=== PATIENT | female | born 1950 | race Caucasian/White ===

== ENCOUNTER → 2023-11-09 06:57 | Outpatient (REF) | payer MEDICARE, OTHER, SELFPAY ==
[2023-11-09 08:06] LABS: % Basophils 0.6 % (0-2); % Eosinophils 2.5 % (0-6); % Immature Granulocytes 0.2 % (0-0.5); % Lymphocytes 35.5 % (20.5-51.1); % Monocytes 6.8 % (1.7-9.3); % Neutrophils 54.4 % (42.2-75.2); Absolute Eosinophils 0.2 10^3/uL (0-0.7); Absolute Lymphocytes 2.3 10^3/uL (1.2-3.4); Absolute Monocytes 0.4 10^3/uL (0.1-0.6); Absolute Neutrophils 3.4 10^3/uL (1.4-6.5); Hematocrit 35.7 % (37.0-47.0); Hemoglobin 11.4 g/dL (12.0-16.0); Mean Corp Hgb Conc. 31.9 g/dL (33.0-37.0); Mean Corpuscular Hgb 31.2 pg (27.0-31.0); Mean Corpuscular Volume 97.8 fL (81.0-99.0); Mean Platelet Volume 10.5 fL (7.4-10.4); Nucleated Red Blood Cells % 0 %; Platelet Count 256 10^3/uL (130-400); Red Blood Cell Count 3.65 10^6/uL (4.20-5.40); White Blood Cell Count 6.3 10^3/uL (4.8-10.8)
[2023-11-09 08:46] LABS: ALT (SGPT) 28 U/L (0-35); AST (SGOT) 22 U/L (14-36); Albumin 4.3 g/dl (3.5-5.0); Alkaline Phosphatase 79 U/L (38-126); Blood Urea Nitrogen 20 mg/dl (7-17); Calcium 9.4 mg/dl (8.4-10.2); Carbon Dioxide 28 mmol/L (22-30); Chloride 104 mmol/L (98-107); Glucose 92 mg/dl (70-99); HDL Cholesterol 79 mg/dl; LDH 186 U/L (120-246); LDL Cholesterol, Calculated 141 mg/dl; Potassium 4.3 mmol/L (3.5-5.1); Sodium 136 mmol/L (135-145); Total Bilirubin 0.9 mg/dl (0.2-1.3); Total Cholesterol 239 mg/dl (50-199); Total Protein 6.6 g/dl (6.3-8.2); Triglyceride 98 mg/dl (10-149); Very Low Density Lipoprotein 19 mg/dl (0-30); eGFR > 60.00
[2023-11-09 10:58] LABS: TSH 2.36 uIU/ml (0.47-4.68)
== END ==
LOC: REG 06:57
PROVIDERS: ATTENDING PHYSICIAN Family Medicine; FAMILY PHYSICIAN Dermatology
DX: Z85.820 Personal history of malignant melanoma of skin (principal); E78.2 Mixed hyperlipidemia; E03.9 Hypothyroidism, unspecified
CPT/HCPCS: 36415; 80053; 80061; 83615; 84443; 85025

== ENCOUNTER 2024-03-20 23:48 | Inpatient (IN) | payer MEDICARE, OTHER, SELFPAY ==
[2024-03-20 20:59] VITALS: BP 144/78
[2024-03-20 21:35] LABS: % Basophils 0.3 % (0-2); % Eosinophils 0.5 % (0-6); % Immature Granulocytes 0.2 % (0-0.5); % Lymphocytes 17.1 % (20.5-51.1); % Neutrophils 75.9 % (42.2-75.2); Absolute Eosinophils 0.1 10^3/uL (0-0.7); Absolute Lymphocytes 2.3 10^3/uL (1.2-3.4); Absolute Monocytes 0.8 10^3/uL (0.1-0.6); Hematocrit 37.2 % (37.0-47.0); Hemoglobin 12.5 g/dL (12.0-16.0); Mean Corp Hgb Conc. 33.6 g/dL (33.0-37.0); Mean Corpuscular Hgb 32.3 pg (27.0-31.0); Mean Corpuscular Volume 96.1 fL (81.0-99.0); Mean Platelet Volume 10.2 fL (7.4-10.4); Nucleated Red Blood Cells % 0 %; Platelet Count 250 10^3/uL (130-400); Red Blood Cell Count 3.87 10^6/uL (4.20-5.40); Red Cell Dist. Width 12.7 % (11.5-14.5); White Blood Cell Count 13.2 10^3/uL (4.8-10.8)
[2024-03-20 21:45] VITALS: BP 156/125
[2024-03-20 21:56] LABS: ALT (SGPT) 69 U/L (0-35); AST (SGOT) 133 U/L (14-36); Albumin 4.7 g/dl (3.5-5.0); Alkaline Phosphatase 97 U/L (38-126); Blood Urea Nitrogen 18 mg/dl (7-17); Calcium 9.7 mg/dl (8.4-10.2); Carbon Dioxide 27 mmol/L (22-30); Chloride 103 mmol/L (98-107); Glucose 141 mg/dl (70-99); Potassium 4.3 mmol/L (3.5-5.1); Sodium 140 mmol/L (135-145); Total Bilirubin 1.3 mg/dl (0.2-1.3); Total Protein 6.8 g/dl (6.3-8.2); eGFR > 60.00
[2024-03-20 22:00] VITALS: BP 131/72
[2024-03-20 22:21] LABS: Lipase > 4000 U/L (23-300)
--- NOTE | 2024-03-20 22:48 | ED.GENMED ---
History of Present Illness
General
Chief Complaint: Abdominal Pain
Source: patient
Exam Limitations: none
Time Seen by Provider: 03/20/24 22:31
History of Present Illness
History of Present Illness:
This is a 73 year old female that comes in with c/o upper abd pain. States that it is more a discomfort then a pain. States that this started about 6pm tonight. States that a few weeks ago she had pain for a few hours but this went away. States
that she did vomited tonight and felt batter after vomiting. States that she also had diarrhea on Monday but she thought it was from the food she eat on Monday. Denies any fever,chills, chest pain, SOB, nausea, headache, dizziness, urinary
burning.
Past History
Past History
ED Past Medical History: Cancer (Melanoma that she had Multiple tumors removed in her abdomen. ), Hypothyroidism and Other (T call placement. Stem cell immunotherapy many years ago. cavernova of the brain bleed)
ED Past Surgical History: Other (N/A)
Social History
Tobacco: Former smoker
Alcohol: Occasional
Personal:
Living: alone
Employment: Employed
Review of Systems
Review of Systems
All Other Systems: ROS reviewed and negative except as documented in HPI and ROS
Constitutional: Reports no symptoms; Denies fever or chills
EENT: Reports no symptoms
Respiratory: Reports no symptoms; Denies cough or trouble breathing
Cardiac: Reports no symptoms; Denies chest pain
ABD/GI: Reports abdominal pain (Upper abd) and vomiting; Denies nausea or diarrhea
: Reports no symptoms; Denies dysuria, frequency or urgency
Musculoskeletal: Reports no symptoms
Skin: Reports no symptoms
Neurological: Reports no symptoms; Denies dizzy or headache
Psychiatric: Reports no symptoms
Phy Exam
General Physical Exam
General Presentation: well appearing and no apparent distress
General age: appears stated age
General Skin: warm and dry
General Habitus: elderly
General Mental: alert
General Hydration: appears well hydrated
ENT Exam
ENT Exam: TM's normal, pharynx normal and neck supple
Eye Exam
Eye Exam: EOMI
Cardiovascular Exam
Cardiovascular Exam: regular rate/rhythm, no edema, no murmur and normal peripheral pulses
Pulmonary Exam
Pulmonary Exam: lungs clear, no respiratory distress, no rales, chest non tender, no crackles, no rhonchi, no wheezing and no cough
Gastrointestinal Exam
Gastrointestinal Exam: normal bowel sounds, soft, no organomegaly, no pulsatile mass, non distended and tender (Upper abd tenderness with palpation)
Musculoskeletal Exam
Musculoskeletal Exam: full ROM and no edema
Skin Exam
Skin Exam: normal color, warm/dry, no rash and no petechia
Psychiatric Exam
Psychiatric Exam: normal mood/affect
Course
Orders/Labs/Results
Orders:
Orders
03/20/24 21:11
IV Insert/Care/Rem.- Treatment PRN
03/20/24 21:27
Complete Blood Count/With Diff Urgent
Comprehensive Metabolic Panel Urgent
Lipase Urgent
Magnesium Urgent
Comment: ADD ON
03/20/24 21:31
ECG [Electrocardiogram (*1)] Urgent
Reason for Study: Abdominal Pain
Cardiology Consult: Unknown
EKG- Treatment ONCE
03/20/24 22:46
0.9% Sodium Chloride 1000 ml [Nss] 1,000 ml IV BOLUS
US Abdomen Complete/Upper Urgent
Comment: pancreatitis
Reason For Exam: Upper abd pain, elevaed liver enzymes,
03/20/24 22:57
HYDROmorphone [Dilaudid] 0.5 mg IV NOW STA
Ondansetron Injectable [Zofran] 4 mg IV NOW STA
03/20/24 23:28
0.9% Sodium Chloride 1000 ml [Nss] 1,000 ml IV BOLUS
03/20/24 23:30
Admit/Transfer Patient As Directed
Co-Sign Provider:
Level of Care: Inpatient admission
Assign to:: Telemetry
Physician / Group: Patricia Fuentes
Diagnosis: acute pancreatitis
Reason for Telemetry: Chest Pain syndromes
Date to Stop Telemetry: 03/22/24
Time to Stop Telemetry: 11:00
Reason for Hospitalization: acute pancreatitis
Expected length of stay greater than two midnights?: Yes
ELOS- Estimated Length of Stay in days: 3
I certify the patient meets the requirements for IP care: Yes
Code Status As Directed
Resuscitation Status: Full Code
PRN Pain Medication Management As Directed
May give lesser potent ordered pain med per pt: Yes
preference::
Protocol:: Medication orders for pain may be administered in a
manner that supports deferring to patient preference
when the pt is:
- Requesting an ordered lesser potent pain medication.
Least to most potent pain medications are defined
as: acetaminophen < NSAID < tramadol < opioids
(morphine, oxycodone, hydromorphone).
- Requesting a lesser dose of the same medication IF
ORDERED.
- Requesting a less intrusive route of administration
if both routes are prescribed by the provider (PO <
IV).
03/20/24 23:36
Add On- LAB Routine
Tests Added?: magnesium
03/21/24 00:14
0.9% Sodium Chloride 1000 ml [Nss] 1,000 ml IV 150 mls/hr
0.9% Sodium Chloride [Nss (Preservative Free)] See Protocol IV PRN PRN
Acetaminophen [Tylenol] 650 mg PO Q4HPRN PRN
FOLic ACID [Folvite] 1 mg 0.9% Sodium Chloride 50 ml [Nss] 50 ml IV DAILYPRN
HYDROmorphone [Dilaudid] 0.5 mg IV Q3HPRN PRN
Lorazepam [Ativan] 1 mg IV Q1HPRN PRN
Lorazepam [Ativan] 1 mg PO Q2HPRN PRN
Lorazepam [Ativan] 2 mg IV Q1HPRN PRN
Thiamine HCl [Vitamin B1] 100 mg PO BID
03/21/24 00:14
Consult Gastroenterology [GASTROINTESTINAL CONSULT] Routine
Consulting Provider: Faizan Dai
Was physician already notified: No
Reason for consult: concern for gallstone pancreatitis
Consult Notification Routine
Specialty to Notify: Gastroenterology
DIETARY CONSULT Routine
Reason for Consult: Nutrition support, possible refeeding guidelines
Activity As Directed
Activity Level: As Tolerated
MSAS SCORE As Directed
MSAS Score 0-4: Repeat MSAS every 2 hours until 0-4 for three consecutive assessments, then every 4 hours x 48
hours.
MSAS Score 5-7: For MILD withdrawl symptoms. Repeat MSAS and RASS every 2 hours
MSAS Score 8-11: For MODERATE withdrawal symptoms. Repeat MSAS and RASS every 1 hour. Consider ICU or IMU
level of care.
MSAS Score > 11: For SEVERE withdrawal symptoms. Repeat MSAS and RASS every 1 hour. Notify provider, consider
ICU level of care.
MSAS Additional Instructions: If no improvement or no decrease in score from severe to moderate within 12
hours, consult psychiatry
MSAS Notify Provider: Notify provider if patient requires more than 10 mg of Lorazepam in eight hour period.
Vital Signs As Directed
Frequency: Per unit guidelines
DX Deep Vein Thrombosis Video Routine
03/21/24 Breakfast
NPO
Allow oral meds: Yes
Allow clear liquids: Sips of Clears
NPO with Ice Chips: Yes
Complete Blood Count/With Diff IN AM
Comprehensive Metabolic Panel IN AM
Lipase IN AM
Magnesium IN AM
Levothyroxine [Synthroid] 50 mcg PO DAILY@0600
Ondansetron Injectable [Zofran] 4 mg IV Q6HPRN PRN
03/21/24 08:00
FOLic ACID [Folvite] 1 mg PO DAILY
Thiamine Injection 200 mg IV Q12
03/21/24 18:00
Enoxaparin Sodium [Lovenox] 40 mg SC QPM
03/22/24 11:00
DC Protocol for Telemetry ONCE
Abnormal Lab Results
03/20/24
21:27
WBC 13.2 H 10^3/uL
(4.8-10.8)
RBC 3.87 L 10^6/uL
(4.20-5.40)
MCH 32.3 H pg
(27.0-31.0)
Absolute Neuts (auto) 10.0 H 10^3/uL
(1.4-6.5)
Absolute Monos (auto) 0.8 H 10^3/uL
(0.1-0.6)
Neutrophils % 75.9 H %
(42.2-75.2)
Lymphocytes % 17.1 L %
(20.5-51.1)
BUN 18 H mg/dl
(7-17)
Glucose 141 H mg/dl
(70-99)
AST 133 H U/L
(14-36)
ALT 69 H U/L
(0-35)
Lipase > 4000 H* U/L
(23-300)
03/20/24 21:27
03/20/24 21:27
Leukocytosis, Hyperglycemia, AST/ALT elevation. Lipase elevated Pancreatitis
Vital Signs
Initial and Last Documented VS:
Initial Vital Signs
Temp Pulse Resp BP Pulse Ox
97.7 F 80 20 144/78 98
03/20/24 20:59 03/20/24 20:59 03/20/24 20:59 03/20/24 20:59 03/20/24 20:59
Last Documented Vital Signs
Temp Pulse Resp BP Pulse Ox
97.8 F 90 17 162/88 96
03/21/24 00:25 03/21/24 00:25 03/21/24 00:25 03/21/24 00:25 03/21/24 00:25
MDM/Problems Addressed
Differential Diagnosis Includes:
pancreatitis, Gastritis
MDM/Problems Addressed:
This is a 73 year old female that comes in with c/o upper abd pain. States that this started at 6pm tonight and she also had this a few weeks ago but it went away. Tonight it was not going away.
Will get labs. US. Explained to patient that she has pancreatitis and she will be admitted. Hospitalist notified.
Chronic conditions affecting care:
history of Melanoma with multiple tumors
Acute Exacerbation and/or Progression of Chronic Illness:
NA
*Radiology
Radiology exam reviewed: radiology read reviewed (US-Cholelithiasis and gallbladder wall thickening, Indeterminate for acute cholecystitis. Consider further evaluation with dedicated HIDA scan if clinically indicated. )
*Pulse Oximetry
Patient hypoxic: no
*EKG
Interpreted by ED Provider?: Yes
Heart Rate: 83
Rate: normal
Rhythm: sinus
[place]: left axis deviation
Interval: normal interval
QRS Pattern: normal QRS
Ischemia: no ischemia
*Manager Behavioral Interpretation
Rate: normal
Heart Rate: 87
*Critical Care Note
Total Time (30-74mins, 75-104mins- exclusive of procedures): Not Applicable
ED Attending Note
-
Portions of this chart may have been created with voice recognition software.� Occasional wrong word or��sound alike� substitutions may have occurred due to the inherent limitations of voice recognition software.
Discharge Plan
Departure
Patient Disposition: Admit
Date of Disposition: 03/20/24
Time of Disposition: 22:57
Admit to: Med/Surg
Presentation/result/management discussed w/ accepting MD/DO: Hospitalist
Patient with high blood pressure during this ER visit?: Yes
Discharge Problem:
Acute pancreatitis
Interventions
Interventions:
*Risk Screen - Suicide Last Done: 03/21/24 00:59
*General Assessment Last Done: 03/20/24 20:59
*Neglect/Abuse Screening Last Done: 03/20/24 20:59
ED- Fall Risk Assessment Last Done: 03/20/24 20:59
*ED COVID-19 Vaccine History Last Done: 03/21/24 00:59
*Nursing Disposition Last Done: 03/21/24 00:15
YI-Oxknxa-Ccayyozqjf Assessment Last Done: 03/20/24 23:13
Discharge Date and Time
Discharge Date/Time: 03/21/24 00:16
--- NOTE | 2024-03-20 22:58 | HPS.HSE ---
Addendum entered and electronically signed by Patricia Fuentes MD 03/21/24 00:57:
RUQ US results:
IMPRESSION:
1. Cholelithiasis and gallbladder wall thickening, indeterminate for acute cholecystitis. Consider further evaluation with dedicated HIDA scan if clinically indicated.
will start antibiotics - cef/flagyl (rash allergy to Augmentin) - risks/benefits explained to patient
Original Note:
Family Physician
-
Family Physician: Anayeli Negro
Chief Complaint
-
abdominal pain and nausea
History of Present Illness
Ms. Na Sher is a 73 yo woman with hx melanoma (treated 10 years ago without recurrence), hypothyroidism presents to the ER with abdominal pain and nausea. Patient describes upper abdominal discomfort like bruising. She had similar episodes
twice over past 2 weeks. These episodes lasted a couple of hours and occurred after eating. On Monday she went to a 'make your own cheese steak' democrat and the following day had significant diarrhea, no pain. Diarrhea resolved. Today after eating
she had return of upper abdominal discomfort that persisted causing her to come to the ER. + nausea. She vomited in the ER and had relief.
No fevers, + chills. No chest pain or shortness of breath. No lower extremity swelling. No rash. + anxiety
Medical History
Past Medical History
Past Medical History: Reports Other ( melanoma, hypothyroidism)
Past Surgical History: Reports Other (melanoma surgical removal )
Social History
Tobacco: Non-smoker
Alcohol: Daily (one glass of wine )
Family History
Family History: Not pertinent
Allergies / Home Medications
Allergies reflects when Allergies were last updated in [employer].
Home Medications with original date entered in [employer]
Allergy/Medication List:
Allergies
Allergy/AdvReac Type Severity Reaction Status Date / Time
amoxicillin [From Augmentin] Allergy Rash Verified 03/20/24 20:59
clavulanic acid Allergy Rash Verified 03/20/24 20:59
[From Augmentin]
steroids Allergy stem cell Uncoded 03/20/24 20:59
placement
and states
not allowed
Home Medications
levothyroxine 50 mcg tablet 50 mcg PO DAILY 03/20/24
Review of Systems
-
History Source: Patient
A 12 point ROS was completed and negative except as noted: Yes
Physical Exam
Vital Signs
Vital Signs
Temp Pulse Resp BP Pulse Ox
97.7 F 80 20 144/78 98
03/20/24 20:59 03/20/24 20:59 03/20/24 20:59 03/20/24 20:59 03/20/24 20:59
Physical Exam
General: No Apparent Distress
HEENT: PERRLA
Respiratory: Clear; No Wheezes
Cardiac: S1/S2 and Regular Rhythm
GI: Other (tenderness mid-epigastric region, no rebound or guarding )
Musculoskeletal: No Edema
Skin: Warm and Dry; No Rash
Neuro: AO x 3
Psych: Calm
Laboratory Results
-
03/20/24 21:27
03/20/24 21:27
Laboratory Results
Total Bilirubin 1.3 mg/dl (0.2-1.3) 03/20/24 21:27
AST 133 U/L (14-36) H 03/20/24 21:27
ALT 69 U/L (0-35) H 03/20/24 21:27
Alkaline Phosphatase 97 U/L (38-126) 03/20/24 21:27
Lipase > 4000 U/L (23-300) H* 03/20/24 21:27
Data Reviewed
-
Diagnostic Radiology: Report Reviewed by me
Lab Data: Labs Reviewed by me
Impression/Plan
-
Ms. Na Sher is a 73 yo woman with hx melanoma, hypothyroidism presents to the ER with abdominal pain and nausea found to have acute pancreatitis.
Triage VS: T 97.7, P 80, RR 20, BP 144/78, SpO2 98% RA
LABS: WBC 13.2, Hg 12.5, PLT 250, Na 140, K+ 4.3, BUN 18, Cr 1.0, Glucose 141, Ca 9.7, T. Bili 1.3, AST 133, ALT 69, Lipase > 4000
MAR: IV dilaudid, 1L IVF, IV Zofran
Acute Pancreatitis
-suspect gallstone pancreatitis given similar symptoms over past two weeks. Patient drinks one glass of wine daily, denies more. Ca level normal
-RUQ US ordered
-admit to tele
-2 L IVF in ER, continue IVF
-NPO except ice chips
-IV Dilaudid PRN
Daily Alcohol Use
-thiamine/folate
-MSAS protocol
DVT PPx Lovenox subQ
FULL CODE
76 minutes spent on patient evaluation, medical decision making, coordination of care
[2024-03-20] MEDS: NSS 1000 IV (22:59)
[2024-03-20] MEDS: ZOFRAN 4 MG IV (22:59)
[2024-03-20 23:00] VITALS: BP 84/52
[2024-03-21] VITALS: BP 88/67
[2024-03-21] MEDS: NSS 1000 IV ×3 (00:03→08:24)
[2024-03-21 00:16] VITALS: BMI 27.1
[2024-03-21 00:24] LABS: Magnesium 1.9 mg/dl (1.6-2.3)
[2024-03-21 00:25] VITALS: BP 162/88
[2024-03-21] MEDS: VITAMIN B1 100 MG PO (00:49)
[2024-03-21] MEDS: ROCEPHIN 1000 MG IV (01:36)
[2024-03-21] MEDS: STERILE WATER FOR INJECTION 10 ML IV (01:36)
[2024-03-21] MEDS: FLAGYL 500 MG 100 IV ×3 (01:36→17:25)
[2024-03-21 03:19] VITALS: BP 135/70
[2024-03-21] MEDS: SYNTHROID 50 MCG PO (05:32)
[2024-03-21] MEDS: ZOFRAN 4 MG IV ×2 (05:33→13:56)
[2024-03-21 06:52] VITALS: BP 134/75
[2024-03-21 07:12] LABS: % Basophils 0.2 % (0-2); % Eosinophils 0.3 % (0-6); % Immature Granulocytes 0.2 % (0-0.5); % Lymphocytes 15.9 % (20.5-51.1); % Monocytes 5.6 % (1.7-9.3); % Neutrophils 77.8 % (42.2-75.2); Absolute Lymphocytes 1.5 10^3/uL (1.2-3.4); Absolute Monocytes 0.5 10^3/uL (0.1-0.6); Absolute Neutrophils 7.4 10^3/uL (1.4-6.5); Hematocrit 31.8 % (37.0-47.0); Hemoglobin 10.9 g/dL (12.0-16.0); Mean Corp Hgb Conc. 34.3 g/dL (33.0-37.0); Mean Corpuscular Hgb 31.7 pg (27.0-31.0); Mean Corpuscular Volume 92.4 fL (81.0-99.0); Nucleated Red Blood Cells % 0 %; Platelet Count 223 10^3/uL (130-400); Red Blood Cell Count 3.44 10^6/uL (4.20-5.40); Red Cell Dist. Width 12.8 % (11.5-14.5); White Blood Cell Count 9.6 10^3/uL (4.8-10.8)
[2024-03-21 08:13] LABS: ALT (SGPT) 129 U/L (0-35); AST (SGOT) 159 U/L (14-36); Albumin 3.8 g/dl (3.5-5.0); Alkaline Phosphatase 95 U/L (38-126); Blood Urea Nitrogen 13 mg/dl (7-17); Calcium 8.6 mg/dl (8.4-10.2); Carbon Dioxide 24 mmol/L (22-30); Chloride 109 mmol/L (98-107); Estimated Creatinine Clearance 60 ml/min; Glucose 92 mg/dl (70-99); Magnesium 1.8 mg/dl (1.6-2.3); Sodium 142 mmol/L (135-145); Total Bilirubin 0.9 mg/dl (0.2-1.3); Total Protein 5.8 g/dl (6.3-8.2); eGFR > 60.00
[2024-03-21] MEDS: THIAMINE INJECTION 200 MG IV ×2 (08:32→20:22)
[2024-03-21] MEDS: FOLVITE 1 MG PO (08:32)
[2024-03-21] MEDS: VITAMIN B1 PO (08:34)
[2024-03-21 08:57] LABS: Lipase > 4000 U/L (23-300)
--- NOTE | 2024-03-21 09:21 | CON.GI ---
Addendum entered and electronically signed by Faizan Dai MD 03/21/24 14:56:
I saw and examined the patient.
The CHORUS DANCER or PA's note was reviewed and I agree with the note.
Comment:
73yo female presents with episodic post prandial abd pain over last several weeks. Lipase 4000, AST 159, ALT 129, TB/alk phos normal. US shows gallstones and GBWT.
ABD mild epigastric tenderness, no r/g
REC:
NPO
IVF- LR, increase rate to 200 cc/hr
Check MRI/MRCP r/o CBD stone
If positive, ERCP
If negative, Surgery planning on lap nuris/IOC tomorrow
Original Note:
Consultation
-
Date/Time Consultation Requested: 03/21/24 0014
Date/Time Consultation Performed: 03/21/24 0900
Requesting Provider: Dr Fuentes
Performing Provider: Dr Dai / Judy Ortez PA-C
Reason for Consultation: pancreatitis
Medical History
Chief Complaint / HPI
Chief Complaint: abdominal pain
History of Present Illness:
This is a 73 year old female with a past medical history of hypothyroidism, melanoma (s/p excision) who had been having intermittent upper abdominal pain for the past 2-3 weeks. It felt minor, like a 'bruising' or soreness. She noticed it worsened
after eating, especially after eating greasy meals. Occasionally with associated nausea. She did have one episode of diarrhea after eating cheesesteak and a martini, but the diarrhea is now resolved. No fever. She did feel chills. The upper
abdominal pain, nausea persisted so she presented to the ER. She vomited once in the ER, no hematemesis or coffee grounds emesis. She does drink alcohol, a glass of wine 5 nights a week. She denies NSAID use. No drug use. Her only medication is
levothyroxine, and she denies any other vitamins or herbal supplements. Workup in the ER showed an elevated lipase >4000, with elevated LFTs (AST 133, ALT 69). Initial CBC showed mildly elevated WBC count of 13.2, with stable hemoglobin. Ultrasound
showed unremarkable liver without evidence of a focal lesion. Gallstones noted, with gallbladder wall thickening, but without any pericholecystic fluid and negative sonographic Morrison sign, indeterminate for acute cholecystitis. Empiric antibiotics
have been started.
Past Medical History
Past Medical History: Hypothyroidism and Other (melanoma, colon polyps)
Past Surgical History: Other (excision of melanoma)
Social History
Tobacco: Non-Smoker
Alcohol: Daily (glass of wine nightly (sometimes 5 nights/week))
Drug: None
Family History
Family History: Other (liver cancer (cousin))
Allergies / Home Medications
Allergy/AdvReac Type Severity Reaction Status Date / Time
amoxicillin [From Augmentin] Allergy Rash Verified 03/20/24 20:59
clavulanic acid Allergy Rash Verified 03/20/24 20:59
[From Augmentin]
steroids Allergy stem cell Uncoded 03/20/24 20:59
placement
and states
not allowed
�Medication �Instructions �Recorded
levothyroxine 50 mcg tablet 50 mcg PO DAILY Thyroid 03/20/24
Review of Systems
-
History Source: Patient
All other systems: A 12 pt ROS was Negative except as stated above in HPI
Vital Signs
Temp Pulse Resp BP Pulse Ox
98.2 F 82 18 134/75 95
03/21/24 06:52 03/21/24 06:52 03/21/24 06:52 03/21/24 06:52 03/21/24 06:52
Physical Exam
Exam
General: Well Developed, Well Nourished and No Apparent Distress
Respiratory: Clear
Cardiac: Regular Rhythm
GI: Soft, Non Tender, Non Distended and Normal Bowel Sounds
Skin: Warm and Dry
Neuro: AO x 3
Psych: Calm
Results
WBC 9.6 10^3/uL (4.8-10.8) 03/21/24 07:03
Hgb 10.9 g/dL (12.0-16.0) L 03/21/24 07:03
Hct 31.8 % (37.0-47.0) L 03/21/24 07:03
MCV 92.4 fL (81.0-99.0) 03/21/24 07:03
Plt Count 223 10^3/uL (130-400) 03/21/24 07:03
Absolute Neuts (auto) 7.4 10^3/uL (1.4-6.5) H 03/21/24 07:03
Sodium 142 mmol/L (135-145) 03/21/24 07:03
Potassium 4.0 mmol/L (3.5-5.1) 03/21/24 07:03
Chloride 109 mmol/L (98-107) H 03/21/24 07:03
Carbon Dioxide 24 mmol/L (22-30) 03/21/24 07:03
BUN 13 mg/dl (7-17) 03/21/24 07:03
Creatinine 0.8 mg/dL (0.6-1.0) 03/21/24 07:03
Calcium 8.6 mg/dl (8.4-10.2) 03/21/24 07:03
Total Bilirubin 0.9 mg/dl (0.2-1.3) 03/21/24 07:03
AST 159 U/L (14-36) H 03/21/24 07:03
ALT 129 U/L (0-35) H 03/21/24 07:03
Alkaline Phosphatase 95 U/L (38-126) 03/21/24 07:03
Lipase > 4000 U/L (23-300) H* 03/21/24 07:03
Diagnostic Image Results:
US Abdomen, 03/20/24:
Cholelithiasis and gallbladder wall thickening, indeterminate for acute cholecystitis.
Prior GI Procedures:
EGD: never
Colonoscopy:
Patient now follows with Dr. Sandoval at [facility] for surveillance colonoscopies.
01/2022 Colonoscopy, Dr. Thomas:
The examined portion of the ileum was normal.
- One 15 to 20 mm polyp in the cecum, removed with a
hot snare. Resected and retrieved. Injected. Clips
were placed.
- One 5mm polyp in the ascending colon removed,
resected and retrieved.
- Two 12 to 15 mm polyps at the splenic flexure.
Tattooed. Not removed.
- One 10 to 12 mm polyp in the descending colon,
removed piecemeal using a hot snare. Resected and
retrieved. Injected. Clip was placed.
- One 7 mm polyp in the sigmoid colon. Not removed.
- Tortuous colon. PATH: Sessile serrated lesions.
Recommendation:
- Repeat colonoscopy in 4 months for retreatment with
advanced endoscopist.
Assessment / Plan
-
73 year old female with a past medical history of hypothyroidism, melanoma (s/p excision) who had been having intermittent upper abdominal pain for the past 2-3 weeks. It felt minor, like a 'bruising' or soreness. She noticed it worsened after
eating, especially after eating greasy meals. Occasionally with associated nausea. She did have one episode of diarrhea after eating cheesesteak and a martini, but the diarrhea is now resolved. No fever. She did feel chills. The upper abdominal
pain, nausea persisted so she presented to the ER. She vomited once in the ER, no hematemesis or coffee grounds emesis. She does drink alcohol, a glass of wine 5 nights a week. She denies NSAID use. No drug use. Her only medication is levothyroxine,
and she denies any other vitamins or herbal supplements. Workup in the ER showed an elevated lipase >4000, with elevated LFTs (AST 133, ALT 69). Initial CBC showed mildly elevated WBC count of 13.2, with stable hemoglobin. Ultrasound showed
unremarkable liver without evidence of a focal lesion. Gallstones noted, with gallbladder wall thickening, but without any pericholecystic fluid and negative sonographic Morrison sign, indeterminate for acute cholecystitis. Empiric antibiotics have
been started.
IMPRESSION / PLAN:
Acute pancreatitis, suspect gallstone pancreatitis vs EtOH
- first episode of acute pancreatitis
- lipase >4000
- with mildly elevated LFTs (AST>ALT), with normal bilirubin and no biliary ductal dilatation, will order MRI/MRCP for further evaluation as pancreas was not well-imaged on ultrasound
- NPO
- continue IV fluids
- pain management and antiemetics per hospitalist
Cholelithiasis -- with concern for possible acute cholecystitis
- US showed indeterminate cholecystitis -- antibiotics started
- await Surgical evaluation
Colon Polyps
- Up to date with surveillance colonoscopy
We will follow.
-
-
Thank you for consultation and allowing me to participate in the patient's care. Please call the executive search consultant GI physician during the after hours with any questions or concerns.
--- NOTE | 2024-03-21 10:38 | CON.GS ---
Addendum entered and electronically signed by Andreas Avalos MD 03/21/24 13:56:
Patient seen and examined independently of resident. Agree with documented consultation with additions noted here.
HPI: 73-year-old female who presented with the acute onset of bandlike upper abdominal pain and nausea with subsequent vomiting in the ER. She has had a couple episodes like this over the past few weeks that had previously subsided. Due to
persistence and recurrence of her symptoms which were also worse than previously she presented overnight for evaluation. Still with bandlike discomfort but not to the severity that it was. Nausea subsiding as well. No yellowing of the skin or
eyes. No dark tea colored urine.
Past medical history notable for history of stage IV melanoma treated with immunotherapy/stem cell transplant to cure now about 20 years out from treatment. Hypothyroidism is only active medical problem. From an abdominal surgical standpoint she
had a laparoscopic biopsy for melanoma treatment.
AFVSS
ABD: Soft, nondistended, mild tenderness palpation epigastrium or right upper quadrant. No rebound rigidity or guarding.
Laboratory testing with normal white blood cell count, LFTs with mildly elevated AST ALT but normal alkaline phosphatase and bilirubin. Lipase remains greater than 4000.
Ultrasound abdomen 03/20/2024: Images personally reviewed as well as radiologist report. Numerous gallstones, diffuse gallbladder wall thickening, no pericholecystic edema. No biliary ductal dilation. Common bile duct 5 mm. Liver, pancreas,
spleen and kidneys unremarkable.
Assessment/plan: 73-year-old female admitted with presumed gallstone mediated acute pancreatitis
Reviewed with patient pertinent anatomy and pathophysiology of gallstone mediated pancreatitis with diagram at bedside. We discussed typical treatment and workup.
Given persistence of lipase agree with obtaining MRI/MRCP to evaluate for possible choledocholithiasis.
Clinically improving
Continue n.p.o. except sips and chips
Repeat labs tomorrow a.m.
Patient has been tentatively added onto the OR schedule for lap nuris with IOC tomorrow pending MRI results
Original Note:
Consultation
-
Performing Provider: Don Rose MD ; Andreas Avalos MD
Reason for Consultation: Abdominal pain
Medical History
-
Chief Complaint: Abdominal pain
History of Present Illness:
General Surgery was consulted for concerns of acute cholecystitis in setting of cholelithiasis/choledocholithiasis.
73-year-old female with history of melanoma 20 years ago, hypothyroidism presented to the emergency department with complaints of severe abdominal pain and nausea. She had 1 episode of vomiting in the ER with some abdominal pain relief.
Patient had similar episode abdominal pain 2 weeks ago which subsided on its own. Patient reports she attended a 'make your own cheese steak' libertarian over the weekend and the next day she had some diarrhea which resolved on its own, however she
developed severe abdominal pain which prompted visit to the emergency department.
Patient denies fevers, chest pain, shortness of breath.
Initial workup was positive for acute pancreatitis( Lipase >4000) and elevated LFTs. She also had leukocytosis which resolved with overnight hospital management.
Abdominal ultrasound was positive for cholelithiasis and gallbladder wall thickening. Patient awaiting MRCP.
Patient is very anxious about her medical condition at this time.
Past Medical History
Past Medical History: Hypothyroidism and Other (Melanoma)
Past Surgical History: Other (Melanoma resection)
Social History
Tobacco: Non-Smoker
Alcohol: Daily
Drug: None
Family History
Family History: Reviewed & Not Pertinent
Allergies / Home Medications
Allergy/AdvReac Type Severity Reaction Status Date / Time
amoxicillin [From Augmentin] Allergy Rash Verified 03/20/24 20:59
clavulanic acid Allergy Rash Verified 03/20/24 20:59
[From Augmentin]
steroids Allergy stem cell Uncoded 03/20/24 20:59
placement
and states
not allowed
�Medication �Instructions �Recorded �Confirmed �Type
levothyroxine 50 mcg tablet 50 mcg PO DAILY Thyroid 03/20/24 03/20/24 History
Review of Systems
-
History Source: Patient
A 10 point review of systems was completed, and was negative except as per HPI.
Physical Exam
Vital Signs
Temp Pulse Resp BP Pulse Ox
98.2 F 82 18 134/75 95
03/21/24 06:52 03/21/24 06:52 03/21/24 06:52 03/21/24 06:52 03/21/24 08:00
03/20/24 03/21/24 03/22/24
06:59 06:59 06:59
Actual Weight 69.445 kg
Body Mass Index (BMI) 27.1
Lab Results
03/21/24 07:03
03/21/24 07:03
WBC 9.6 10^3/uL (4.8-10.8) 03/21/24 07:03
Hgb 10.9 g/dL (12.0-16.0) L 03/21/24 07:03
Hct 31.8 % (37.0-47.0) L 03/21/24 07:03
Plt Count 223 10^3/uL (130-400) 03/21/24 07:03
Abs Immat Gran (auto) 0.0 10^3/uL (0-0.05) 03/21/24 07:03
Neutrophils % 77.8 % (42.2-75.2) H 03/21/24 07:03
Physical Exam
General: Well Developed and Other (Anxious)
GI: Soft, Non Distended and Tender (Diffuse mild)
Data Reviewed
-
Ultrasound: Image Personally Visualized and interpreted, Report Reviewed by me, Discussed with Physician and Discussed with Patient
Total Time Spent with Patient (in minutes): 20
Assessment / Plan
-
73-year-old female with acute pancreatitis; ultrasound concerning for cholelithiasis.
-N.p.o. ; continue IV fluids
-Continue IV antibiotics
-Continue IV as needed pain control
-Antiemetic: IV Zofran as needed
-awaiting MRCP
MSAS protocol for alcohol withdrawal
DVT prophylaxis: Lovenox
[2024-03-21] MEDS: LR 1000 IV ×2 (10:56→18:16)
--- NOTE | 2024-03-21 11:14 | W.PN.HOSP.TC ---
Today's Communication/Plan
-
Await MRCP
General Surgery consult
Assessment / Plan
Assessment / Plan
Gen-AAOx3, NAD
HEENT-NC, AT, anicteric, clear oral mm
Neck-supple
CV-reg, no M, +S1/S2
Lungs-clear B/L
Abd-soft, mild epigastric tenderness, no rebound or guarding
Ext-no edema
Musculoskeletal-no cyanosis, clubbing
Skin-warm and dry
Neuro-grossly non-focal
Psych-calm, cooperative
Acute gallstone pancreatitis -ultrasound shows cholelithiasis and gallbladder wall thickening. Indeterminate for acute cholecystitis. No biliary ductal dilation. Common bile duct measures 5 mm. MRCP pending. GI consulted. Consult general
surgery. Currently NPO. Change IV fluids to lactated Ringer's.
Currently on empiric antibiotics, ceftriaxone and metronidazole. No signs or symptoms of sepsis. Leukocytosis resolved.
Hypothyroidism -continue levothyroxine.
History of melanoma -treated with stem cell transplant at [facility] 2004.
Doubt alcohol use disorder -reported history of 1 glass of wine, but not daily. No need for alcohol withdrawal protocol.
Full code
Anticipated Discharge: > 48 hours
Subjective/Interval History
-
Date of Service: March 21, 2024
Patient seen and examined. Overall feeling better. Denies nausea. Mild abdominal pressure.
Objective Data
-
Labs:
Laboratory Results
03/21/24
07:03
WBC 9.6
Hgb 10.9 L
Hct 31.8 L
Plt Count 223
Sodium 142
Potassium 4.0
Chloride 109 H
Carbon Dioxide 24
BUN 13
Creatinine 0.8
Glucose 92
Calcium 8.6
Total Bilirubin 0.9
AST 159 H
ALT 129 H
Alkaline Phosphatase 95
Vital Signs:
Vital Signs
Temp Pulse Resp BP Pulse Ox
98.2 F 82 18 134/75 95
03/21/24 06:52 03/21/24 06:52 03/21/24 06:52 03/21/24 06:52 03/21/24 08:00
I&O
03/20/24 03/21/24 03/22/24
06:59 06:59 06:59
Intake Total 240 / 240
Balance 240 / 240
Review of Systems
-
History Source: Patient
All other systems: Reviewed and negative
[2024-03-21 15:12] VITALS: BP 119/65
[2024-03-21] MEDS: LOVENOX 40 MG SC (17:25)
[2024-03-21 23:03] VITALS: BP 123/58
[2024-03-22] VITALS (10 sets, daily range): BP systolic 111–126; BP diastolic 61–69
[2024-03-22] MEDS: LR 1000 IV ×4 (00:07→17:31)
[2024-03-22] MEDS: STERILE WATER FOR INJECTION 10 ML IV (02:00)
[2024-03-22] MEDS: ROCEPHIN 1000 MG IV (02:00)
[2024-03-22] MEDS: FLAGYL 500 MG 100 IV ×2 (02:00→09:28)
[2024-03-22] MEDS: ZOFRAN 4 MG IV ×3 (02:37→19:40)
[2024-03-22] MEDS: SYNTHROID 50 MCG PO (05:23)
[2024-03-22] MEDS: THIAMINE INJECTION 200 MG IV ×2 (08:17→19:37)
[2024-03-22] MEDS: FOLVITE 1 MG PO (08:17)
--- NOTE | 2024-03-22 09:11 | W.PN.HOSP.TC ---
Today's Communication/Plan
-
Await surgery today
Assessment / Plan
Assessment / Plan
Gen-AAOx3, NAD
HEENT-NC, AT, anicteric, clear oral mm
Neck-supple
CV-reg, no M, +S1/S2
Lungs-clear B/L
Abd-soft, mild epigastric tenderness, no rebound or guarding
Ext-no edema
Musculoskeletal-no cyanosis, clubbing
Skin-warm and dry
Neuro-grossly non-focal
Psych-calm, cooperative
Acute gallstone pancreatitis -ultrasound shows cholelithiasis and gallbladder wall thickening. Indeterminate for acute cholecystitis. No biliary ductal dilation. Common bile duct measures 5 mm.
I spoke with general surgery and they plan on cholecystectomy today, they feel that MRCP can be canceled.
Hypothyroidism -continue levothyroxine.
History of melanoma -treated with stem cell transplant at [facility] 2004.
Doubt alcohol use disorder -reported history of 1 glass of wine, but not daily. No need for alcohol withdrawal protocol.
Full code
Anticipated Discharge: 24 - 48 hours
Subjective/Interval History
-
Date of Service: March 22, 2024
Patient seen and examined. Feels better. Denies abdominal pain.
Objective Data
-
Labs:
Laboratory Results
03/22/24
08:41
WBC Pending
Hgb Pending
Hct Pending
Plt Count Pending
Sodium Pending
Potassium Pending
Chloride Pending
Carbon Dioxide Pending
BUN Pending
Creatinine Pending
Glucose Pending
Calcium Pending
Total Bilirubin Pending
AST Pending
ALT Pending
Alkaline Phosphatase Pending
Vital Signs:
Vital Signs
Temp Pulse Resp BP Pulse Ox
98.5 F 94 18 125/66 96
03/22/24 07:25 03/22/24 07:25 03/22/24 07:25 03/22/24 07:25 03/22/24 07:25
I&O
03/21/24 03/22/24 03/23/24
06:59 06:59 06:59
Intake Total 240 / 240 1600 / 1600
Balance 240 / 240 1600 / 1600
Review of Systems
-
History Source: Patient
All other systems: Reviewed and negative
--- NOTE | 2024-03-22 09:30 | W.PN.GS2 ---
Today's Communication / Plan
-
OR today.
Assessment / Plan
-
This is a 73-year-old female who presented with acute onset bandlike upper abdominal pain with mildly elevated LFTs and markedly elevated lipase found to have pancreatitis likely of biliary origin.
Will plan for a laparoscopic cholecystectomy with cholangiogram today.
No role for MRI at this point, LFTs normal.
Risks/Benefits/Alternatives, expected postoperative course and possible complications (bleeding, infection, injury to surrounding structures, acute/chronic pain) discussed at length. Patient wishes to proceed with surgery. All questions answered.
Consent obtained.
I spent roughly 50 minutes in total for the care of this patient today including direct patient care and counseling, reviewing labs, imaging, coordination of care, as well as documentation.
Time Spent
Total Time Spent with Patient (in minutes): 25
Subjective Data
-
Date of Service: March 22, 2024
interval Events:
No acute events overnight. Slept well. Pain Controlled. Denies Nausea/Vomiting, +bowel function. Tolerating diet.
Objective Data
-
Intake and Output
03/21/24 03/22/24 03/23/24
06:59 06:59 06:59
Intake Total 240 / 240 1600 / 1600
Balance 240 / 240 1600 / 1600
Intake:
Oral fluids 240 / 240
IV fluids (Total) 1400 / 1400
IV piggybacks 200 / 200
Other:
Number of approximated MODERATE 3 2
amounts of urine
Vital Signs
Temp Pulse Resp BP Pulse Ox
98.5 F 94 18 125/66 96
03/22/24 07:25 03/22/24 07:25 03/22/24 07:25 03/22/24 07:25 03/22/24 07:25
Calcium 8.6 mg/dl (8.4-10.2) 03/21/24 07:03
Magnesium 1.8 mg/dl (1.6-2.3) 03/21/24 07:03
Total Bilirubin 0.9 mg/dl (0.2-1.3) 03/21/24 07:03
AST 159 U/L (14-36) H 03/21/24 07:03
ALT 129 U/L (0-35) H 03/21/24 07:03
Alkaline Phosphatase 95 U/L (38-126) 03/21/24 07:03
Total Protein 5.8 g/dl (6.3-8.2) L 03/21/24 07:03
Albumin 3.8 g/dl (3.5-5.0) 03/21/24 07:03
Physical Exam
-
GENERAL/NEURO: Awake, Alert, no distress
CHEST: Unlabored breathing on RA
ABDOMEN: Soft, Non-Tender, Non-Distended
--- NOTE | 2024-03-22 09:34 | W.SUR.PREOP ---
Pre-Operative Surgical Note
-
I have examined this patient prior to the performance of the scheduled procedure.
The patient's condition is unchanged from the time of the current History and
Physical and the patient is able to undergo the scheduled procedure.
--- NOTE | 2024-03-22 09:39 | PTCARENOTE ---
Patient NPO. Patient to go for gallbladder removal today. CHG wipes completed. Patient voided. Flagyl administered as ordered. Patient understands procedure and is awaiting moss picker. Hand off given to OR.
[2024-03-22 09:50] LABS: Hematocrit 30.1 % (37.0-47.0); Hemoglobin 10.3 g/dL (12.0-16.0); Mean Corp Hgb Conc. 34.2 g/dL (33.0-37.0); Mean Corpuscular Hgb 31.7 pg (27.0-31.0); Mean Corpuscular Volume 92.6 fL (81.0-99.0); Mean Platelet Volume 10.9 fL (7.4-10.4); Platelet Count 207 10^3/uL (130-400); Red Blood Cell Count 3.25 10^6/uL (4.20-5.40); Red Cell Dist. Width 12.7 % (11.5-14.5); White Blood Cell Count 12.2 10^3/uL (4.8-10.8)
[2024-03-22 10:22] LABS: ALT (SGPT) 72 U/L (0-35); AST (SGOT) 48 U/L (14-36); Albumin 3.7 g/dl (3.5-5.0); Alkaline Phosphatase 92 U/L (38-126); Blood Urea Nitrogen 14 mg/dl (7-17); Carbon Dioxide 20 mmol/L (22-30); Chloride 105 mmol/L (98-107); Estimated Creatinine Clearance 69 ml/min; Glucose 54 mg/dl (70-99); Potassium 4.2 mmol/L (3.5-5.1); Sodium 139 mmol/L (135-145); Total Bilirubin 1.6 mg/dl (0.2-1.3); Total Protein 5.8 g/dl (6.3-8.2); eGFR > 60.00
--- NOTE | 2024-03-22 10:24 | PTCARENOTE ---
Glucose resulted at 54. Patient already in OR - OR notified of result. MD notified.
[2024-03-22 10:30] LABS: Lipase 172 U/L (23-300)
[2024-03-22 10:35] LABS: Glucose - Point of Care 78 mg/dl (70-99)
--- NOTE | 2024-03-22 11:47 | W.IMMPOSTOP ---
Surgical Immed Post Op Note
-
Primary Surgeon: Brody Kaplan MD
Assisting Surgeon: None
Pre-op Diagnosis: Gallstone pancreatitis
Post-op Diagnosis: Same
Procedure Performed:
1. Laparoscopic cholecystectomy with cholangiogram
2. Lysis of adhesions (less than 20 minutes)
Anesthesia Type: General
Specimen / Cultures: Gallbladder and contents
Estimated Blood Loss: 3 cc
Complications: None
Operative Findings: Fairly normal fatty appearing gallbladder. Critical view of safety obtained prior to a cholangiogram which demonstrated a somewhat mildly dilated CBD but no distal filling defects. There were some midline adhesions from her
prior surgery that was obscuring her view which had to be taken down initially. This was done with both sharp and electrocautery dissection. No injury to the underlying viscera.
POST OP PLAN:
Imaging: None
Labs: Routine AM
Diet: Advance to Regular as tolerated
Analgesia: Tylenol 650mg q6 Alessandro, Supriya 5mg q6 PRN, Dilaudid 0.5mg q2h PRN
Neuro/vascular checks: q4h
AC/AP: Hold Therapeutic AC, Ok for DVT PPx
Activity: Ad Augustina
Wound/Incisions/Drains: Routine
Abx: Continue while admitted, can stop on discharge
Dispo: RNF, anticipate discharge home tomorrow pending clinical course.
--- NOTE | 2024-03-22 11:49 | OR.RPT ---
Operative Report
Operative Report
Patient Name: Na Sher
: 1950
Date of Operation: 03/22/2024
Preoperative Diagnosis: Gallstone pancreatitis
Postoperative Diagnosis: Same
Procedure(s):
Laparoscopic Cholecystectomy with Cholangiogram
Lysis of adhesions (less than 20 minutes)
Surgeon(s):
Dr. Kaplan
Data Governance Analyst(s):
GLADYS Addison
Anesthesia: General
Estimated Blood Loss: 3 cc
Urine Output: None
Drains/Lines/Implants: None
Specimens:
1. Gallbladder and contents
HPI/Surgical Indications:
This is a 73-year-old female who presented to our hospital with epigastric bandlike abdominal pain found to have pancreatitis of biliary etiology. Risks/Benefits/Alternatives were discussed at length, and the patient agreed to proceed with surgery.
Operative Findings: Fairly normal fatty appearing gallbladder. Some edema noted in the cystic triangle. Critical view of safety obtained prior to a cholangiogram which demonstrated a somewhat mildly dilated CBD but no distal filling defects.
There were some midline adhesions from her prior surgery that was obscuring her view which had to be taken down initially. This was done with both sharp and electrocautery dissection. No injury to the underlying viscera.
Procedure Description:
The patient was brought to the Operating Room and placed in the supine position. IV antibiotics were infused and sequential compression devices were confirmed to be on. Following uneventful induction of general endotracheal anesthesia, an
orogastric tube was placed. The abdomen was prepped and draped in the usual sterile fashion. The abdomen was entered using an infraumbilical open Vahe technique with a 12 mm balloon trocar. Pneumoperitoneum to 15 mmHg pressure was obtained
without difficulty and we confirmed that no injury had occurred during our entry. The patient was positioned in reverse trendelenberg and rotated with the right side up slightly. Three (3) 5mm trocars were then placed along the right subcostal
margin. There was a fair amount of adhesions from the omentum to the anterior midline likely from her prior surgery this was carefully lysed with sharp and electrocautery dissection. There is no underlying injury to the viscera. We did identify
section of bowel that had been inked with tattoo but otherwise there was no other findings. We then turned our attention to the gallbladder which initially looked fairly normal. A locking grasping forceps was placed on the fundus of the gallbladder
where it was then retracted cephalad and to the right. Using appropriate grasping instruments, the peritoneum overlying the triangle of Calot was incised. The cystic triangle as well as the gallbladder wall was fairly edematous. The cystic
duct/gallbladder junction was identified, dissected circumferentially. The cystic artery was identified medially and was dissected circumferentially. A critical view was obtained. A clip was then placed on the cystic duct/gallbladder junction and
an intraoperative cholangiogram performed using fluoroscopy, which showed good flow of dye into the duodenum. There were no intra- or extrahepatic bile duct filling defects. The biliary anatomy appeared normal, although somewhat dilated. Following
completion of the cholangiogram, the catheter was removed. Two clips were then placed proximally on the cystic duct and the duct divided. The duct was reinforced with a 0 PDS Endoloop. Two clips were placed proximally and one distally on the
cystic artery, and the artery was divided. Remaining soft tissue attachments of the gallbladder to the liver bed were then divided using electrocautery. There was no spillage of bile or stones. The gallbladder bed was inspected and excellent
hemostasis was obtained. The gallbladder was extracted through the 12 mm trocar site using an endocatch bag. The abdomen was again irrigated and excellent hemostasis was assured. All remaining trocars were then removed and the pneumoperitoneum was
evacuated. The 12 mm trocar site was closed using a figure of 8 of 0 PDS. All trocar sites were closed at the skin level using 4-0 Monocryl followed by Dermabond. Overall, the patient tolerated the procedure well and was taken to the Recovery
Room postoperatively in stable condition.
I was the attending physician and performed the procedure with assistance from the ROUTE INSPECTOR above. I was present for all portions of the case
Brody Kaplan MD
--- NOTE | 2024-03-22 12:18 | W.PN.UPDATE ---
Update Note
Progress Note Update
noted that pt went to OR and had negative intraop cholangiogram
will sign off
[2024-03-22 12:23] LABS: Glucose - Point of Care 71 mg/dl (70-99)
--- NOTE | 2024-03-22 13:36 | PTCARENOTE ---
Patient received from PACU. Staus post lap nuris. Patient lethargic but easily arousable. Vital signs stable. 4 Lap sites with surgical glue. No drainage from surgical sites. Denies pain at this time.
[2024-03-22] MEDS: LOVENOX 40 MG SC (17:09)
[2024-03-22] MEDS: DILAUDID 0.5 MG IV (19:40)
[2024-03-23] MEDS: ZOFRAN 4 MG IV (01:47)
[2024-03-23] MEDS: TYLENOL 650 MG PO (01:47)
[2024-03-23] MEDS: LR 1000 IV (03:43)
[2024-03-23] MEDS: SYNTHROID 50 MCG PO (05:08)
[2024-03-23 06:34] LABS: % Basophils 0.2 % (0-2); % Eosinophils 0.4 % (0-6); % Immature Granulocytes 0.5 % (0-0.5); % Lymphocytes 12.7 % (20.5-51.1); % Monocytes 6.1 % (1.7-9.3); % Neutrophils 80.1 % (42.2-75.2); Absolute Eosinophils 0.1 10^3/uL (0-0.7); Absolute Immature Granulocytes 0.1 10^3/uL (0-0.05); Absolute Lymphocytes 1.6 10^3/uL (1.2-3.4); Absolute Monocytes 0.8 10^3/uL (0.1-0.6); Absolute Neutrophils 10.3 10^3/uL (1.4-6.5); Hematocrit 29.7 % (37.0-47.0); Hemoglobin 10.1 g/dL (12.0-16.0); Mean Corpuscular Hgb 31.5 pg (27.0-31.0); Mean Corpuscular Volume 92.5 fL (81.0-99.0); Mean Platelet Volume 10.4 fL (7.4-10.4); Nucleated Red Blood Cells % 0 %; Platelet Count 202 10^3/uL (130-400); Red Blood Cell Count 3.21 10^6/uL (4.20-5.40); Red Cell Dist. Width 12.7 % (11.5-14.5); White Blood Cell Count 12.9 10^3/uL (4.8-10.8)
[2024-03-23 06:46] LABS: ALT (SGPT) 60 U/L (0-35); AST (SGOT) 42 U/L (14-36); Albumin 3.5 g/dl (3.5-5.0); Alkaline Phosphatase 94 U/L (38-126); Blood Urea Nitrogen 12 mg/dl (7-17); Carbon Dioxide 21 mmol/L (22-30); Chloride 105 mmol/L (98-107); Estimated Creatinine Clearance 60 ml/min; Glucose 75 mg/dl (70-99); Potassium 4.4 mmol/L (3.5-5.1); Sodium 136 mmol/L (135-145); Total Bilirubin 1.2 mg/dl (0.2-1.3); Total Protein 5.5 g/dl (6.3-8.2); eGFR > 60.00
[2024-03-23 07:15] VITALS: BP 144/83
[2024-03-23] MEDS: THIAMINE INJECTION 200 MG IV (08:03)
[2024-03-23] MEDS: FOLVITE 1 MG PO (08:03)
--- NOTE | 2024-03-23 11:07 | W.PN.HOSP.TC ---
Today's Communication/Plan
-
Discharge
Assessment / Plan
Assessment / Plan
Gen-AAOx3, NAD
HEENT-NC, AT, anicteric, clear oral mm
Neck-supple
CV-reg, no M, +S1/S2
Lungs-clear B/L
Abd-soft, mild epigastric tenderness, no rebound or guarding
Ext-no edema
Musculoskeletal-no cyanosis, clubbing
Skin-warm and dry
Neuro-grossly non-focal
Psych-calm, cooperative
Acute gallstone pancreatitis -underwent successful laparoscopic cholecystectomy with cholangiogram yesterday. Tolerating diet. Antibiotics discontinued. Bilirubin improved. Can discharge today with outpatient follow-up.
Hypothyroidism -continue levothyroxine.
History of melanoma -treated with stem cell transplant at [facility] 2004.
Doubt alcohol use disorder -reported history of 1 glass of wine, but not daily. No need for alcohol withdrawal protocol.
Full code
Dispo -medically stable for discharge. Discussed with surgical service.
31 minutes spent in discharge process.
Anticipated Discharge: Today
Subjective/Interval History
-
Date of Service: March 23, 2024
Patient seen and examined. Tolerating diet. No complaints.
Objective Data
-
Labs:
Laboratory Results
03/23/24
05:57
WBC 12.9 H
Hgb 10.1 L
Hct 29.7 L
Plt Count 202
Sodium 136
Potassium 4.4
Chloride 105
Carbon Dioxide 21 L
BUN 12
Creatinine 0.8
Glucose 75
Calcium 9.0
Total Bilirubin 1.2
AST 42 H
ALT 60 H
Alkaline Phosphatase 94
Vital Signs:
Vital Signs
Temp Pulse Resp BP Pulse Ox
97.8 F 90 16 144/83 98
03/23/24 07:15 08/24/24 07:15 03/23/24 07:15 03/23/24 07:15 03/23/24 07:15
I&O
03/22/24 03/23/24 03/24/24
06:59 06:59 06:59
Intake Total 1600 / 1600 360 / 360
Balance 1600 / 1600 360 / 360
Review of Systems
-
History Source: Patient
All other systems: Reviewed and negative
--- NOTE | 2024-03-23 11:09 | W.DS.TRANS ---
DC Summary - Housekeeping Room Attendant
-
Discharge Instructions:
Discharge Diagnosis/Procedures Gallstone pancreatitis. Laparoscopic
cholecystectomy.
Diet As tolerated,Low Fat
Activity No strenuous activity
Bathing Restrictions OK to Shower
Instructions:
Stand-Alone Forms:
Changes to Home Medications: No
Discharge Medications:
DC Medications w/original date entered in [email or web address]
levothyroxine 50 mcg tablet 50 mcg PO DAILY Thyroid 03/20/24
acetaminophen 325 mg tablet 650 mg (2 x 325 mg) PO Q6HPRN PRN mild pain #14 tabs 03/22/24
ibuprofen 600 mg tablet 600 mg PO Q6H PRN pain #14 tabs 03/22/24
tramadol 50 mg tablet 25 mg (1/2 x 50 mg) PO Q6HPRN PRN severe pain/breakthrough pain #8 tabs 03/22/24
Home Medication Changes
Pending Results: No
--- NOTE | 2024-03-23 11:44 | W.PN.GS2 ---
Today's Communication / Plan
-
Dispo planning
Assessment / Plan
-
This is a 73-year-old female who presented with acute onset bandlike upper abdominal pain with mildly elevated LFTs and markedly elevated lipase found to have pancreatitis likely of biliary origin. POD #1 laparoscopic cholecystectomy with
cholangiogram.
Regular diet
No antibiotics needed
Dispo planning. Discharge instructions updated.
Time Spent
Total Time Spent with Patient (in minutes): 20
Subjective Data
-
Date of Service: March 23, 2024
Interval Events:
No acute events overnight. Slept well. Pain Controlled. Denies Nausea/Vomiting, +bowel function. Tolerating diet.
Objective Data
-
Intake and Output
03/22/24 03/23/24 03/24/24
06:59 06:59 06:59
Intake Total 1600 / 1600 360 / 360
Balance 1600 / 1600 360 / 360
Intake:
Oral fluids 360 / 360
IV fluids (Total) 1400 / 1400
IV piggybacks 200 / 200
Other:
Number of approximated MODERATE 2 2
amounts of urine
Vital Signs
Temp Pulse Resp BP Pulse Ox
97.8 F 90 16 144/83 98
03/23/24 07:15 03/23/24 07:15 03/23/24 07:15 03/23/24 07:15 03/23/24 07:15
Lab Results
03/23/24 05:57
03/23/24 05:57
Calcium 9.0 mg/dl (8.4-10.2) 03/23/24 05:57
Magnesium 1.8 mg/dl (1.6-2.3) 03/21/24 07:03
Total Bilirubin 1.2 mg/dl (0.2-1.3) 03/23/24 05:57
AST 42 U/L (14-36) H 03/23/24 05:57
ALT 60 U/L (0-35) H 03/23/24 05:57
Alkaline Phosphatase 94 U/L (38-126) 03/23/24 05:57
Total Protein 5.5 g/dl (6.3-8.2) L 03/23/24 05:57
Albumin 3.5 g/dl (3.5-5.0) 03/23/24 05:57
Physical Exam
-
GENERAL/NEURO: Awake, Alert, no distress
CHEST: Unlabored breathing on RA
ABDOMEN: Soft, Non-Tender, Non-Distended, incisions clean dry and intact. Some periumbilical bruising noted stable
[2024-03-23 12:12] VITALS: BP 148/80
--- NOTE | 2024-03-23 16:05 | CM ---
Patient with Dx Acute gallstone pancreatitis s/p laparoscopic cholecystectomy.
Met with patient who resides alone in a 2nd floor condo with 6 + 6 TEGAN.
The patient has been independent in ADLs and ambulation.
She is active, drives, shops for herself.
The patient shares that she has good family support from her 2 sons.
The patient has no DME.
Remote prior VN.
No prior SNF.
PCP - Anayeli Negro
Pharmacy - [facility] [place], [place]
The patient says she feels ready to go home today. IMM completed.
Her son Damien will provide a ride home.
No CM d/c needs identified.
Plan home today. .
== END 2024-03-23 13:35 | disposition home or self-care (01) | DRG 419 ==
LOC: 4 EAST ACU 23:48
PROVIDERS: Emergency Medicine; Registered Nurse; Surgery; ADMITTING PHYSICIAN Student in an Organized Health Care Education/Training Program; ATTENDING PHYSICIAN Hospitalist; CONSULT PHYSICIAN Specialist; CONSULT PHYSICIAN Surgery; EMERGENCY PHYSICIAN Emergency Medicine; FAMILY PHYSICIAN Family Medicine
PROC: 0FT44ZZ Resection of Gallbladder, Percutaneous Endoscopic Approach (ICD-10-PCS; 2024-03-22)
PROC: 0DNU4ZZ Release Omentum, Percutaneous Endoscopic Approach (ICD-10-PCS; 2024-03-22)
PROC: BF502Z0 Other Imaging of Bile Ducts using Fluorescing Agent, Intraoperative (ICD-10-PCS; 2024-03-22)
DX: K85.10 Biliary acute pancreatitis without necrosis or infection (principal); K80.20 Calculus of gallbladder without cholecystitis without obstruction; E03.9 Hypothyroidism, unspecified; K66.0 Peritoneal adhesions (postprocedural) (postinfection); Z85.820 Personal history of malignant melanoma of skin
CPT/HCPCS: 88304; 74300; 76000; 76700; 80053; 82962; 83690; 83735; 85025; 85027; 93005; 96361; 96374; 99285

== ENCOUNTER → 2024-04-25 07:05 | Outpatient (REF) | payer MEDICARE, OTHER, SELFPAY ==
[2024-04-25 07:28] LABS: % Basophils 0.6 % (0-2); % Eosinophils 2.3 % (0-6); % Immature Granulocytes 0.3 % (0-0.5); % Lymphocytes 34.1 % (20.5-51.1); % Monocytes 7.6 % (1.7-9.3); % Neutrophils 55.1 % (42.2-75.2); Absolute Eosinophils 0.2 10^3/uL (0-0.7); Absolute Lymphocytes 2.2 10^3/uL (1.2-3.4); Absolute Monocytes 0.5 10^3/uL (0.1-0.6); Absolute Neutrophils 3.6 10^3/uL (1.4-6.5); Hematocrit 34.7 % (37.0-47.0); Hemoglobin 11.4 g/dL (12.0-16.0); Mean Corp Hgb Conc. 32.9 g/dL (33.0-37.0); Mean Corpuscular Hgb 30.8 pg (27.0-31.0); Mean Corpuscular Volume 93.8 fL (81.0-99.0); Mean Platelet Volume 10.4 fL (7.4-10.4); Nucleated Red Blood Cells % 0 %; Platelet Count 229 10^3/uL (130-400); Red Cell Dist. Width 12.5 % (11.5-14.5); White Blood Cell Count 6.6 10^3/uL (4.8-10.8)
[2024-04-25 08:30] LABS: ALT (SGPT) 19 U/L (0-35); AST (SGOT) 23 U/L (14-36); Albumin 4.4 g/dl (3.5-5.0); Alkaline Phosphatase 73 U/L (38-126); Blood Urea Nitrogen 15 mg/dl (7-17); Calcium 9.7 mg/dl (8.4-10.2); Carbon Dioxide 27 mmol/L (22-30); Chloride 104 mmol/L (98-107); Glucose 86 mg/dl (70-99); HDL Cholesterol 62 mg/dl; LDL Cholesterol, Calculated 146 mg/dl; Potassium 4.6 mmol/L (3.5-5.1); Sodium 144 mmol/L (135-145); Total Bilirubin 0.8 mg/dl (0.2-1.3); Total Cholesterol 236 mg/dl (50-199); Total Protein 6.5 g/dl (6.3-8.2); Triglyceride 141 mg/dl (10-149); Very Low Density Lipoprotein 28 mg/dl (0-30); eGFR > 60.00
== END ==
LOC: REG 07:05
PROVIDERS: ATTENDING PHYSICIAN Family Medicine
DX: E78.2 Mixed hyperlipidemia (principal); R79.89 Other specified abnormal findings of blood chemistry
CPT/HCPCS: 36415; 80053; 80061; 85025

== ENCOUNTER → 2024-06-11 10:28 | Outpatient (REF) | payer MEDICARE, OTHER, SELFPAY | LOC: WDC 10:28 | PROVIDERS: ATTENDING PHYSICIAN Obstetrics & Gynecology Gynecology; FAMILY PHYSICIAN Family Medicine | DX: Z12.31 Encounter for screening mammogram for malignant neoplasm of breast (principal) | CPT/HCPCS: 77063; 77067 ==

== ENCOUNTER → 2024-11-18 06:41 | Outpatient (REF) | payer MEDICARE, OTHER, SELFPAY ==
[2024-11-18 07:47] LABS: ALT (SGPT) 20 U/L (0-35); AST (SGOT) 19 U/L (14-36); Albumin 4.6 g/dl (3.5-5.0); Alkaline Phosphatase 77 U/L (38-126); Blood Urea Nitrogen 19 mg/dl (7-17); Calcium 9.8 mg/dl (8.4-10.2); Carbon Dioxide 26 mmol/L (22-30); Chloride 105 mmol/L (98-107); Glucose 95 mg/dl (70-99); HDL Cholesterol 84 mg/dl; LDL Cholesterol, Calculated 136 mg/dl; Potassium 5.4 mmol/L (3.5-5.1); Sodium 142 mmol/L (135-145); Total Cholesterol 240 mg/dl (50-199); Total Protein 6.6 g/dl (6.3-8.2); Triglyceride 104 mg/dl (10-149); Very Low Density Lipoprotein 20 mg/dl (0-30); eGFR > 60.00
[2024-11-18 18:13] LABS: TSH 3.46 uIU/ml (0.47-4.68)
== END ==
LOC: REG 06:41
PROVIDERS: ATTENDING PHYSICIAN Family Medicine
DX: E78.2 Mixed hyperlipidemia (principal); E03.9 Hypothyroidism, unspecified
CPT/HCPCS: 36415; 80053; 80061; 84443

== ENCOUNTER → 2024-12-06 10:06 | Outpatient (REF) | payer MEDICARE, OTHER, SELFPAY ==
[2024-12-06 11:20] LABS: Blood Urea Nitrogen 25 mg/dl (7-17); Calcium 9.8 mg/dl (8.4-10.2); Carbon Dioxide 30 mmol/L (22-30); Chloride 102 mmol/L (98-107); Glucose 80 mg/dl (70-99); Potassium 4.6 mmol/L (3.5-5.1); Sodium 139 mmol/L (135-145); eGFR > 60.00
== END ==
LOC: REG 10:06
PROVIDERS: ATTENDING PHYSICIAN Family Medicine
DX: E87.5 Hyperkalemia (principal)
CPT/HCPCS: 36415; 80048

== ENCOUNTER 2025-02-05 10:00 | Emergency (ER) | payer MEDICARE, OTHER, SELFPAY ==
[2025-02-05 10:02] VITALS: BP 169/81
--- NOTE | 2025-02-05 12:16 | ED.GENMED ---
History of Present Illness
General
Chief Complaint: Skin Surface Trauma
Source: patient
Exam Limitations: none
Time Seen by Provider: 02/05/25 11:19
Nursing documentation reviewed up to this point in time: agreed with
History of Present Illness
History of Present Illness:
74-year-old female presenting to the emergency department today with concerns of a laceration to the left ring finger on the radial aspect occurring from a short of glass when changing a photo from a picture frame just prior to arrival. Denies any
numbness weakness on the blood thinners. Denies any immunosuppression currently. Claims that she had a recent tetanus shot and is up-to-date.
Past History
Past History
ED Past Medical History: Cancer (Melanoma that she had Multiple tumors removed in her abdomen. ), Hypothyroidism and Other (T call placement. Stem cell immunotherapy many years ago. cavernova of the brain bleed)
ED Past Surgical History: Other (N/A)
Social History
Tobacco: Former smoker
Alcohol: Occasional
Personal:
Living: alone
Employment: Employed
Review of Systems
Review of Systems
Allergies reviewed?: Yes
All Other Systems: ROS reviewed and negative except as documented in HPI and ROS
Phy Exam
Physical Exam
Physical Exam:
GENERAL: Alert , in no apparent distress
EYE: pupils equal and reactive
NECK: Supple, no significant adenopathy.
ENT: o/p clr, mmm.
CARDIAC: Regular rate and rhythm .
LUNGS: Clear breath sounds bilaterally, no acute respiratory distress, no wheezes/rales/rhonchi
ABDOMEN: Soft, without focal tenderness, no r/g, no cvat
NEUROLOGICAL: Alert and oriented, no focal neuro deficits
SKIN: Laceration to the left ring finger just lateral to the nailbed 3 mm in length superficial depth, warm and dry, skin intact.
MUSCULOSKELETAL: No edema, well perfused.
PSYCH: Normal and appropriate interaction.
Course
Vital Signs
Initial and Last Documented VS:
Initial Vital Signs
Temp Pulse Resp BP Pulse Ox
97.8 F 71 20 169/81 97
02/05/25 10:02 02/05/25 10:02 02/05/25 10:02 02/05/25 10:02 02/05/25 10:02
Last Documented Vital Signs
Temp Pulse Resp BP Pulse Ox
97.8 F 71 20 169/81 97
02/05/25 10:02 02/05/25 10:02 02/05/25 10:02 02/05/25 10:02 02/05/25 10:02
Procedures
Laceration Closure
Left Lateral Distal Fourth Finger:
Status of Wound: clean
Size of Wound in cm: 0.3
Description of Wound Edges: sharp
Preparation: cleaned with saline
Anesthesia: 1% Lidocaine
Revision/Debridement: routine- no revision
Wound exploration: explored to base- no FB
Type of Closure: single layer closure
Skin Closure Material: 5-0 nylon
Number of sutures: 1
MDM/Problems Addressed
MDM/Problems Addressed:
74-year-old female presenting to the emergency department with a small cut to the left ring finger from a piece of glass. Explored to its base no signs of foreign body. Cleaned thoroughly closed with 1 stitch to control bleeding otherwise will
follow-up in 14 days for suture removal. Low risk for infection. Up-to-date with tetanus.
*Pulse Oximetry
SaO2: 97
Oxygen Mode of Delivery: Room air
Patient hypoxic: no (97)
*Critical Care Note
Total Time (30-74mins, 75-104mins- exclusive of procedures): Not Applicable
ED Attending Note
-
Portions of this chart may have been created with voice recognition software.� Occasional wrong word or��sound alike� substitutions may have occurred due to the inherent limitations of voice recognition software.
Discharge Plan
Departure
Patient Disposition: Home (Routine Discharge)
Date of Disposition: 02/05/25
Time of Disposition: 12:19
Patient with high blood pressure during this ER visit?: No
Condition: Good
Covid-19: Not Applicable
Discharge Problem:
Finger laceration
Instructions: Laceration Repair With Stitches (DC)
Prescriptions:
No Action
levothyroxine 50 mcg Tablet
50 mcg PO DAILY
acetaminophen [acetaminophen] 325 mg tablet
650 mg PO Q6HPRN PRN (Reason: mild pain) Qty: 14 0RF
tramadol 50 mg tablet
25 mg PO Q6HPRN PRN (Reason: severe pain/breakthrough pain) Qty: 8 0RF
ibuprofen 600 mg tablet
600 mg PO Q6H PRN (Reason: pain) Qty: 14 0RF
Referrals:
Anayeli Negro MD [Family Provider, [facility]]
Activity Restrictions/Additional Instructions:
You came to the emergency department today with concerns of a finger laceration. This was stitched with 1 stitch. Please keep the area clean covered and follow-up in 10 to 14 days for suture removal. Return for any worsening, new or concerning
symptoms.
Interventions
Interventions:
*Risk Screen - Suicide Last Done: 02/05/25 10:02
*General Assessment Last Done: 02/05/25 10:02
*Neglect/Abuse Screening Last Done: 02/05/25 10:02
Discharge Date and Time
Print Language: HEBREW
== END 2025-02-05 12:28 | disposition home or self-care (01) ==
LOC: EMR 10:00
PROVIDERS: EMERGENCY PHYSICIAN Student in an Organized Health Care Education/Training Program; FAMILY PHYSICIAN Family Medicine
DX: S61.215A Laceration without foreign body of left ring finger without damage to nail, initial encounter (principal); X58.XXXA Exposure to other specified factors, initial encounter; E03.9 Hypothyroidism, unspecified; Z85.820 Personal history of malignant melanoma of skin; Z86.73 Personal history of transient ischemic attack (TIA), and cerebral infarction without residual deficits; Z87.891 Personal history of nicotine dependence
CPT/HCPCS: 99282; 12001

== ENCOUNTER → 2025-02-11 07:29 | Outpatient (REF) | payer MEDICARE, OTHER, SELFPAY | LOC: RAD 07:29 | PROVIDERS: ATTENDING PHYSICIAN Internal Medicine; FAMILY PHYSICIAN Family Medicine | DX: R74.02 Elevation of levels of lactic acid dehydrogenase [LDH] (principal) | CPT/HCPCS: 74177; Q9967 ==

== ENCOUNTER → 2025-03-21 12:57 | Outpatient (REF) | payer MEDICARE, OTHER, SELFPAY | LOC: MRI 3T 12:57 | PROVIDERS: ATTENDING PHYSICIAN Nurse Practitioner; FAMILY PHYSICIAN Family Medicine | DX: Q27.30 Arteriovenous malformation, site unspecified (principal); C43.9 Malignant melanoma of skin, unspecified; I61.9 Nontraumatic intracerebral hemorrhage, unspecified | CPT/HCPCS: 70553; A9585 ==

== ENCOUNTER → 2025-05-09 06:58 | Outpatient (REF) | payer MEDICARE, OTHER, SELFPAY ==
[2025-05-09 08:35] LABS: ALT (SGPT) 19 U/L (0-35); AST (SGOT) 20 U/L (14-36); Albumin 4.4 g/dl (3.5-5.0); Alkaline Phosphatase 61 U/L (38-126); Blood Urea Nitrogen 20 mg/dl (7-17); Calcium 9.6 mg/dl (8.4-10.2); Carbon Dioxide 30 mmol/L (22-30); Chloride 104 mmol/L (98-107); Glucose 91 mg/dl (70-99); HDL Cholesterol 93 mg/dl; LDL Cholesterol, Calculated 138 mg/dl; Potassium 4.6 mmol/L (3.5-5.1); Sodium 137 mmol/L (135-145); Total Protein 6.8 g/dl (6.3-8.2); Very Low Density Lipoprotein 24 mg/dl (0-30); eGFR > 60.00
== END ==
LOC: REG 06:58
PROVIDERS: ATTENDING PHYSICIAN Family Medicine
DX: E78.2 Mixed hyperlipidemia (principal)
CPT/HCPCS: 36415; 80053; 80061

== ENCOUNTER → 2025-06-16 11:42 | Outpatient (REF) | payer MEDICARE, OTHER, SELFPAY | LOC: WDC 11:42 | PROVIDERS: ATTENDING PHYSICIAN Obstetrics & Gynecology Gynecology; FAMILY PHYSICIAN Family Medicine | DX: Z12.31 Encounter for screening mammogram for malignant neoplasm of breast (principal) | CPT/HCPCS: 77063; 77067 ==